=== PATIENT | male | born 1975 | race Caucasian/White ===

== ENCOUNTER 2022-05-18 15:14 | Emergency (ER) | payer OTHER, SELFPAY ==
[2022-05-18 15:22] VITALS: BP 141/97; PULSE 74; RESP 14; TEMP 35.9; O2SAT 94; BMI 41.3
--- NOTE | 2022-05-18 15:42 | ED.GENADULT ---
HPI - General Adult General Chief complaint: Bug Bite Stated complaint: Tick Bite Time Seen by Provider: 05/18/22 15:30 Source: patient Mode of arrival: ambulatory Limitations: no limitations History of Present Illness HPI narrative: 46-year-old male coming in today concerned about a bug bite. Patient had what he thought was a skin tag on the back of his right thigh, he was playing with it today and twisted often when he looked at it he realized it was a tick. He believes it has been on his leg for about 2 months. He denies any systemic symptoms or rashes. He denies fevers or chills. No other concerns today. Past medical history significant for obstructive sleep apnea, obesity, history of kidney stones, hyperlipidemia. Related Data Previous Rx's Medication Instructions Recorded doxycycline monohydrate 100 mg 100 mg PO BID 10 Days #20 cap 05/18/22 capsule Allergies Allergy/AdvReac Type Severity Reaction Status Date / Time No Known Drug Allergies Allergy Verified 05/18/22 15:28 Review of Systems Status of ROS: Reports: 6 or more systems reviewed and unremarkable except as noted in History and below PFSH PFS Social History Smoking Status: Never smoker Do you use any of these nicotine containing products: None How often do you have a drink containing alcohol: never How often do you have six or more drinks on one occasion: Never AUDIT-C Alcohol total score: 0 Non-prescribed substance use: denies use service: No Exam Narrative: Exam Narrative: Obese, well-developed patient in no acute distress. Alert and oriented. Answers questions appropriately. Mood and affect are appropriate. Thoughts are goal oriented and rational. No tangential or magical thinking noted. Patient speaks in full sentences without needing to catch their breath. HEENT: Normocephalic atraumatic. Pupils are equally round reactive to light. Extraocular muscles are intact. Conjunctivae are moist without any icterus noted. Skin: Well perfused without any obvious rashes. A posterolateral right thigh patient has a small area of ecchymosis with a pinpoint central ulceration. There is no evidence of other rashes noted. I do not see any tick parts left in the skin. Const: Vital Signs, click to edit/add: Vital Signs - 24 hr 05/18/22 15:22 Temperature 96.7 F L Pulse Rate [Pulse Oximeter] 74 Respiratory Rate 14 Blood Pressure [Le ft Forearm] 141/97 H Pulse Oximetry 94 Course Vital Signs Vital signs: Initial Vital Signs Temperature 96.7 F L 05/18/22 15:22 Temperature Source Temporal Artery Scan 05/18/22 15:22 Pulse Rate 74 05/18/22 15:22 Pulse Rhythm 05/18/22 15:22 Respiratory Rate 14 05/18/22 15:22 Blood Pressure 141/97 H 05/18/22 15:22 Blood Pressure Mean 111 05/18/22 15:22 Blood Pressure Position Sitting 05/18/22 15:22 Pulse Oximetry 94 05/18/22 15:22 Oxygen Delivery Method 05/18/22 15:22 Vital Signs Temperature 96.7 F L 05/18/22 15:22 Pulse Rate 74 05/18/22 15:22 Respiratory Rate 14 05/18/22 15:22 Blood Pressure 141/97 H 05/18/22 15:22 Pulse Oximetry 94 05/18/22 15:22 Temperature 96.7 F L 05/18/22 15:22 Pulse Rate 74 05/18/22 15:22 Respiratory Rate 14 05/18/22 15:22 Blood Pressure 141/97 H 05/18/22 15:22 Pulse Oximetry 94 05/18/22 15:22 Medical Decision Making MDM Narrative Medical decision making narrative: 46-year-old male with an engorged tick bite. Will treat with doxycycline twice a day for 10 days. Follow-up as needed. Discharge Plan Discharge Clinical Impression: Tick bite Patient Disposition: Home, Self-Care Condition: Stable Additional Instructions: Take all antibiotic as prescribed. Follow-up as needed. Prescriptions: New doxycycline monohydrate 100 mg capsule 100 mg PO BID 10 Days Qty: 20 0RF Follow Up/Referrals: Deion Victor MD [Primary Care Provider] - Stand Alone Forms: [employer] Info Instructions
== END 2022-05-18 16:05 | disposition home or self-care (01) ==
LOC: ED 16:03
PROVIDERS: Emergency Provider Family Medicine; PCP Family Medicine
DX: S70.361A Insect bite (nonvenomous), right thigh, initial encounter (principal)
CPT/HCPCS: 99282; 99283; 99284

== ENCOUNTER 2024-10-22 08:23 | Outpatient (CLI) | payer OTHER, SELFPAY | END 2024-10-22 08:24 | disposition home or self-care (01) | LOC: NFLDREF 10-27 23:04 | PROVIDERS: PCP Family Medicine; Referring Provider Family Medicine; Visit Provider Family Medicine | DX: Z13.220 Encounter for screening for lipoid disorders (principal); Z12.5 Encounter for screening for malignant neoplasm of prostate; Z13.1 Encounter for screening for diabetes mellitus | CPT/HCPCS: 80061; 82947; G0103 ==

== ENCOUNTER 2024-11-05 07:44 | Outpatient (CLI) | payer OTHER, SELFPAY | END 2024-11-05 07:45 | disposition home or self-care (01) | LOC: NFLDREF 11-13 16:43 | PROVIDERS: PCP Family Medicine; Referring Provider Family Medicine; Visit Provider Family Medicine | DX: R73.01 Impaired fasting glucose (principal) | CPT/HCPCS: 82947 ==

== ENCOUNTER 2024-11-15 06:23 | Outpatient (CLI) | payer OTHER, SELFPAY ==
--- NOTE | 2024-11-15 07:50 | P.ANES_ITS ---
Anesthesia Charges Start Date/Time Anesthesia Start Date: 11/15/24 Anesthesia Start Time: 07:30 Stop Date/Time Anesthesia Stop Date: 11/15/24 Anesthesia Stop Time: 07:48 Coding CPT Codes CPT Codes: ANES LWR INTST SCR COLSC - 62956 ([id number]) P2 - PATIENT W/MILD SYST DISEASE, QZ - SALES SERVICE MANAGER SVC W/O METHODS AND PROCEDURES ANALYST BY
--- NOTE | 2024-11-15 07:50 | W.ANESCHARGE ---
Anesthesia Charges Start Date/Time Anesthesia Start Date: 11/15/24 Anesthesia Start Time: 07:30 Stop Date/Time Anesthesia Stop Date: 11/15/24 Anesthesia Stop Time: 07:48 Coding CPT Codes CPT Codes: ANES LWR INTST SCR COLSC - [id number] ([id number]) P2 - PATIENT W/MILD SYST DISEASE, QZ - CHIEF EXECUTIVE OR MANAGING DIRECTOR SVC W/O OPTICAL ASSISTANT BY
== END 2024-11-15 06:24 | disposition home or self-care (01) ==
LOC: OP CLINIC 06:23
PROVIDERS: PCP Family Medicine; Visit Provider Internal Medicine
DX: Z12.11 Encounter for screening for malignant neoplasm of colon (principal); K57.30 Diverticulosis of large intestine without perforation or abscess without bleeding; Z86.0100 Personal history of colon polyps, unspecified
CPT/HCPCS: 00812; 45378; J2704